=== PATIENT | female | born 1975 | race Caucasian/White ===

== ENCOUNTER 2017-02-20 00:29 | Emergency (ER) | payer SELFPAY ==
[~2017-02-20] VITALS: Ht 162.6 cm; Wt 72.6 kg
[2017-02-20 02:31] LABS: *BILIRUBIN,URIN NEGATIVE (NEGATIVE); *BLOOD, URINE 1+ (NEGATIVE); *CLARITY,URINE SLIGHTLY CLOUDY (CLEAR); *COLOR,URINE YELLOW (YELLOW); *KETONES,URINE NEGATIVE (NEGATIVE); *PROTEIN,URINE NEGATIVE (NEGATIVE); *UROBILINOGEN,URINE 0.2 E.U./dl (NORMAL); LEUKOCYTE ESTERASE ,URINE NEGATIVE (NEGATIVE); NITRITE, URINE NEGATIVE (NEGATIVE); PH,URINE 5.5 (5.0-8.0); UGLUCOSE NEGATIVE (NEGATIVE)
[2017-02-20 02:37] LABS: BACTERIA,URINE NONE SEEN /HPF (NONE SEEN); SQUAMOUS EPITHELIAL CELL,UR MODERATE /HPF (NONE SEEN); WBC,URINE 0-3 /HPF (0-3)
[2017-02-20 02:38] LABS: *URINE HCG, QUAL NEGATIVE (NEGATIVE); MUCUS,URINE MANY /LPF (0-FEW)
[2017-02-20] MEDS ORDERED: CYCLOBENZAPRINE HCL 10 MG TABLET PO ONE (03:00)
[2017-02-20] MEDS ORDERED: HYDROCODONE/APAP 5-325MG TABLET PO ONE (03:00)
--- NOTE | 2017-02-20 03:11 | NUR ---
Patient discharged to home in stable conditon. Written and verbal after care instructions given. Patient verbalizes understanding of instructions.
[2017-02-20] MEDS ORDERED: HYDROCODONE/APAP 5-325MG TABLET ONE (03:20)
[2017-02-20] MEDS ORDERED: CYCLOBENZAPRINE HCL 10 MG TABLET ONE (03:20)
== END 2017-02-20 03:15 | disposition home or self-care (01) ==
LOC: ER 00:37
DX: M54.9 Dorsalgia, unspecified (principal); F17.200 Nicotine dependence, unspecified, uncomplicated
CPT/HCPCS: 84703; A4663